=== PATIENT | female | born 1985 | race Two or more races ===

== ENCOUNTER 2017-12-25 16:15 | Emergency (ER) | payer SELFPAY ==
[~2017-12-25] VITALS: Ht 152.4 cm; Wt 70.8 kg
[~2017-12-25 16:15] MED LIST: PREN-96 PO
[2017-12-25 17:01] LABS: Basophils # (auto) 0 uL; Basophils % (auto) 0.2 % (0.0-2.0); Eosinophils # (auto) 0 uL; Eosinophils % (auto) 0.4 % (0.0-7.0); Hematocrit 39.9 % (36.0-46.0); Hemoglobin 13.5 g/dL (12.2-16.2); Lymphocytes # (auto) 1.5 uL; Lymphocytes % (auto) 12.9 % (10.0-50.0); Mean Corpuscular Hemoglobin 32.9 pg (28.0-32.0); Mean Corpuscular Hgb Conc. 33.7 g/dL (32.0-36.0); Mean Corpuscular Volume 97.4 fL (80.0-100.0); Monocytes # (auto) 0.7 uL; Monocytes % (auto) 5.8 % (0.0-12.0); Neutrophils # (auto) 9.2 uL; Neutrophils % (auto) 80.7 % (37.0-80.0); Nucleated Red Blood Cells % 0.1 %; Platelet Count (auto) 220 10^3/uL (140-450); Red Blood Cells 4.09 10^6/uL (4.0-5.20); White Blood Cell 11.4 10^3/uL (4.4-10.8)
[2017-12-25 17:13] LABS: Urine Bacteria FEW /hpf (None Seen); Urine Blood 3+ /uL (Negative); Urine Mucus FEW (None Seen); Urine Specific Gravity 1.025 (1.001-1.035); Urine WBC 12 /hpf (0 - 5)
[2017-12-25 17:13] LABS: Albumin 3.9 g/dL (3.4-5.0); Calcium 8.9 mg/dL (8.5-10.1); Potassium 3.5 mmol/L (3.5-5.1)
[2017-12-25 17:16] LABS: BUN/Creatinine Ratio 9.5; Bilirubin, Total 0.7 mg/dL (0.2-1.0); Total Protein 8.8 g/dL (6.4-8.2)
[2017-12-26] MEDS ORDERED: cefTRIAXone SOD 1,000 MG VL IM ONE (01:45)
[2017-12-26 04:00] VITALS: BP 112/70
== END 2017-12-26 05:00 | disposition home or self-care (01) ==
LOC: ER 16:19
DX: N39.0 Urinary tract infection, site not specified (principal)
CPT/HCPCS: 36415; 80053; 81001; 81025; 82150; 83690; 85025; 96372; 99284; J0696

== ENCOUNTER 2024-01-07 13:35 | Observation (INO) | payer MEDICAID ==
[2024-01-07 14:56] LABS: Fern Testing Negative
[2024-01-07 16:16] LABS: Basophils # (auto) 0 10 ^3/uL (0-0.2); Basophils % (auto) 0.1 % (0.0-2.0); Eosinophils # (auto) 0 10 ^3/uL (0-0.8); Eosinophils % (auto) 0.2 % (0.0-7.0); Hematocrit 35.1 % (36.0-46.0); Hemoglobin 12.1 g/dL (12.2-16.2); Lymphocytes # (auto) 1.6 10 ^3/uL (0.4-5.4); Lymphocytes % (auto) 23.5 % (10.0-50.0); Mean Corpuscular Hemoglobin 33.4 pg (28.0-32.0); Mean Corpuscular Hgb Conc. 34.3 g/dL (32.0-36.0); Mean Corpuscular Volume 97.4 fL (80.0-100.0); Monocytes # (auto) 0.3 10 ^3/uL (0-1.3); Monocytes % (auto) 4.9 % (0.0-12.0); Neutrophils # (auto) 4.7 10 ^3/uL (1.6-8.6); Neutrophils % (auto) 71.3 % (37.0-80.0); Nucleated Red Blood Cells % 0.1 %; Platelet Count (auto) 148 10^3/uL (140-450); Red Blood Cells 3.61 10^6/uL (4.0-5.20); Red Cell Distribution Width 14.2 % (11.8-14.3); White Blood Cell 6.6 10^3/uL (4.4-10.8)
[2024-01-07 16:18] LABS: Alanine Aminotransferase 12 U/L (7-40); Albumin 3.8 g/dL (3.2-4.8); Alkaline Phosphatase 125 U/L (46-116); Anion Gap 9 (5-15); Aspartate Aminotransferase 17 U/L (13-40); BUN/Creatinine Ratio 15.4 (10.0-20.0); Blood Urea Nitrogen 8 mg/dL (9-23); Calcium 9.7 mg/dL (8.7-10.4); Carbon Dioxide 20 mmol/L (20-31); Chloride 108 mmol/L (98-107); Glucose 83 mg/dL (74-106); Potassium 3.7 mmol/L (3.5-5.1); Sodium 137 mmol/L (136-145)
[2024-01-07 16:19] LABS: Bilirubin, Total 0.4 mg/dL (0.2-1.0); Total Protein 6.7 g/dL (5.7-8.2)
[2024-01-07 16:29] LABS: INR 0.95 (0.9-1.15); Partial Thromboplastin Time 26.3 SEC (24.5-34.5); Prothrombin Time 10.1 sec (9.3-11.8)
[2024-01-08 07:06] LABS: RPR Non Reactive (Non Reactive)
== END 2024-01-07 15:45 | disposition home or self-care (01) ==
LOC: LDRP 13:35 → UNDOADMOB 13:35 → LDRP 14:01
PROVIDERS: ADMIT Obstetrics & Gynecology; ATTEND Obstetrics & Gynecology
DX: O42.913 Preterm premature rupture of membranes, unspecified as to length of time between rupture and onset of labor, third trimester (principal); O62.9 Abnormality of forces of labor, unspecified; Z3A.37 37 weeks gestation of pregnancy; Z98.890 Other specified postprocedural states; Z79.899 Other long term (current) drug therapy
CPT/HCPCS: 36415; 59025; 76818; 80053; 81002; 84112; 85025; 85610; 85730; 86592; 86850; 86900; 86901; G0378; Q0114

== ENCOUNTER 2024-01-08 08:36 | Observation (INO) | payer MEDICAID | END 2024-01-08 10:35 | disposition home or self-care (01) | LOC: LDRP 08:36 | PROVIDERS: ADMIT Obstetrics & Gynecology; ATTEND Obstetrics & Gynecology | DX: O42.913 Preterm premature rupture of membranes, unspecified as to length of time between rupture and onset of labor, third trimester (principal); O62.9 Abnormality of forces of labor, unspecified; Z3A.37 37 weeks gestation of pregnancy; Z79.899 Other long term (current) drug therapy; Z98.890 Other specified postprocedural states | CPT/HCPCS: 59025; 76818; 81002; 82948; 82962; G0378 ==

== ENCOUNTER 2024-01-11 09:02 | Observation (INO) | payer MEDICAID | END 2024-01-11 11:39 | disposition home or self-care (01) | LOC: LDRP 09:02 | PROVIDERS: ADMIT Obstetrics & Gynecology; ATTEND Obstetrics & Gynecology | DX: O42.913 Preterm premature rupture of membranes, unspecified as to length of time between rupture and onset of labor, third trimester (principal); O09.513 Supervision of elderly primigravida, third trimester; O24.419 Gestational diabetes mellitus in pregnancy, unspecified control; Z3A.38 38 weeks gestation of pregnancy; Z79.899 Other long term (current) drug therapy; Z98.890 Other specified postprocedural states | CPT/HCPCS: 59025; 76818; 81002; 82948; 82962; 94760; G0378 ==

== ENCOUNTER 2024-01-13 13:23 | Observation (INO) | payer MEDICAID ==
--- NOTE | 2024-01-13 14:29 | DVH ---
CLINICAL HISTORY: Low RAMONA COMPARISON: US BIOPHYSICAL PROFILE on DOS: 01/11/24, US BIOPHYSICAL PROFILE on DOS: 01/08/24, US BIOPH YSICAL PROFILE on DOS: 01/07/24 TECHNIQUE: biophysical profile was performed. Transabdominal sonographic images of the fetus we re obtained. FINDINGS: The fetus is in cephalic position. heart rate measures 147 BPM. Amniotic fluid index measures 9 cm. MVP is 4.2 cm. The placenta is posterior in position. BPP profile is an overall score of 8/8, with 2/2 points for breathing, with at least one episode of breathing over a 30 second duration during a 30 minute observation, 2/2 points for m ovements, with 3 or more discrete body or limb movements, 2/2 points for tone, with one or more episodes of extremity extension with return to flexion, or opening and closing of hand, and 2/ 2 points for amniotic fluid, with at least 1 pocket of amniotic fluid that measures 2 cm in 2 perpend icular planes. IMPRESSION: BPP score of 8/8.
[2024-01-13] MEDS ORDERED: ceFAZolin 2 GM/D5W50ml 50 ML IV ONE (15:45)
[2024-01-13] MEDS ORDERED: LACTATED RINGER'S 1,000 ML IV SCH (15:45)
[2024-01-13] MEDS ORDERED: LACTATED RINGER'S 1,000 ML IV ONE (15:45)
--- NOTE | 2024-01-13 16:06 | DVHDS2 ---
Physician Discharge Progress N Final Diagnosis: labor check,oligo Operations or Procedures: Operations or Procedures nst,sono Condition on Discharge: Undetermined Disposition: Still a Patient Discharge Instructions: Diet: See Comment Activity: No Restrictions, As Tolerated Medications: na Follow Up Care: Specialist: admit for cs Discharge Statement: "Patient was advised to return to the ER or call 911 if any headaches, dizziness, shortness of breath, chest pain, abdominal pain, bleeding, fevers, or worsening of medical condition. Patient was counseled about treatment plan, medications, possible side effects, patientverbalized understanding. All questions were answered to the best of my ability. This discharge took greater then 30 minutes in planning, reviewing documentation, counseling the patient, and discussing with other team members." CONCHA GARCIA DO Jan 13, 2024 16:06
[2024-01-13] MEDS ORDERED: DOCU-94 PO (16:23)
[2024-01-13] MEDS ORDERED: IBUP-1456 PO (16:23)
[2024-01-13] MEDS ORDERED: HYDR-4072 PO (16:23)
[2024-01-14] MEDS ORDERED: PREN-96 PO (20:01)
[2024-01-14] MEDS ORDERED: FER325T PO (20:01)
[2024-01-14] MEDS ORDERED: IBUP-1456 PO (20:02)
[2024-01-14] MEDS ORDERED: IBUP-1455 PO (22:32)
[2024-01-14] MEDS ORDERED: HYDR-4798 PO (22:32)
[2024-01-14] MEDS ORDERED: DOCU-94 PO (22:32)
== END 2024-01-13 15:30 | disposition home or self-care (01) ==
LOC: UNDOADMOB 13:23 → LDRP 13:23 → UNDODISOB 15:30
PROVIDERS: ADMIT Obstetrics & Gynecology; ATTEND Obstetrics & Gynecology
DX: O41.03X0 Oligohydramnios, third trimester, not applicable or unspecified (principal); Z3A.38 38 weeks gestation of pregnancy
CPT/HCPCS: 59025; 76818; 81002; G0378

== ENCOUNTER 2024-01-13 15:25 | Inpatient (IN) | payer MEDICAID ==
[~2024-01-13] VITALS: Ht 152.4 cm; Wt 73.9 kg
[2024-01-13 15:15] LABS: Basophils # (auto) 0 10 ^3/uL (0-0.2); Basophils % (auto) 0.4 % (0.0-2.0); Eosinophils # (auto) 0 10 ^3/uL (0-0.8); Eosinophils % (auto) 0.5 % (0.0-7.0); Hematocrit 33.6 % (36.0-46.0); Hemoglobin 11.5 g/dL (12.2-16.2); Lymphocytes # (auto) 1.7 10 ^3/uL (0.4-5.4); Lymphocytes % (auto) 24.9 % (10.0-50.0); Mean Corpuscular Hemoglobin 33.4 pg (28.0-32.0); Mean Corpuscular Hgb Conc. 34.1 g/dL (32.0-36.0); Mean Corpuscular Volume 97.8 fL (80.0-100.0); Monocytes # (auto) 0.4 10 ^3/uL (0-1.3); Monocytes % (auto) 5.7 % (0.0-12.0); Neutrophils # (auto) 4.6 10 ^3/uL (1.6-8.6); Neutrophils % (auto) 68.5 % (37.0-80.0); Platelet Count (auto) 151 10^3/uL (140-450); Red Blood Cells 3.44 10^6/uL (4.0-5.20); Red Cell Distribution Width 13.9 % (11.8-14.3); White Blood Cell 6.7 10^3/uL (4.4-10.8)
[2024-01-13 15:25] LABS: Alanine Aminotransferase 14 U/L (7-40); Albumin 3.8 g/dL (3.2-4.8); Alkaline Phosphatase 130 U/L (46-116); Anion Gap 8 (5-15); Aspartate Aminotransferase 18 U/L (13-40); Bilirubin, Total 0.3 mg/dL (0.2-1.0); Blood Urea Nitrogen 8 mg/dL (9-23); Calcium 9.7 mg/dL (8.7-10.4); Carbon Dioxide 21 mmol/L (20-31); Chloride 109 mmol/L (98-107); Glucose 94 mg/dL (74-106); Potassium 3.9 mmol/L (3.5-5.1); Sodium 138 mmol/L (136-145); Total Protein 6.6 g/dL (5.7-8.2)
[2024-01-13 15:30] LABS: INR 0.94 (0.9-1.15); Partial Thromboplastin Time 25.8 SEC (24.5-34.5)
--- NOTE | 2024-01-13 15:41 | DVHHP ---
ADMIT DATE: 01/14/2024 CHIEF COMPLAINT: Labor, variable decelerations, low amniotic fluid. HISTORY OF PRESENT ILLNESS: The patient is a 1, para 1 female, admitted for suspected low RAMONA, previous , some contractions with variable decelerations. The patient has GDM, well controlled. The patient was sent to Labor and Delivery to check on her fluid, was noted to have multiple variable decelerations. Subsequently, the patient is being prepared for repeat section. Risks, complication, indication, alternative were discussed with the patient. Options reviewed. All questions answered. The patient fully understands. She wishes to proceed with planned procedure. PAST MEDICAL HISTORY: None. PAST SURGICAL HISTORY: . SOCIAL HISTORY: None. FAMILY HISTORY: None. OBSTETRIC AND GYNECOLOGIC HISTORY: One section, GDM. REVIEW OF SYSTEMS: Consistent with HPI. ALLERGIES: No known drug allergies. PHYSICAL EXAMINATION: VITAL SIGNS: Stable, afebrile. HEENT: Within normal limits. CARDIOVASCULAR: Regular rate and rhythm. LUNGS: Clear to auscultation. BREASTS: Symmetrical. No masses. ABDOMEN: Gravid. Positive heart. PELVIC: 1 cm, 50%, -3. EXTREMITIES: No clubbing, cyanosis or edema. IMPRESSION: * Intrauterine at 38+ weeks with suspected oligohydramnios. * Gestational diabetes mellitus. * Previous section x 1. * Multiple variable decelerations. PLAN: Repeat section. Informed consent obtained. Risks, complication of surgery including infection, bleeding, hematoma formation, injury to bowel, bladder, surrounding organs, possibility of DVT, pulmonary embolism, risk of anesthesia discussed with the patient. Options reviewed. All questions answered. The patient fully understands. She wishes to proceed with planned procedure. DO MARICRUZ Olson/LEMUEL TID: [id number] RECEIPT: [id number]
[2024-01-13] MEDS ORDERED: DOCU-94 PO (16:23)
[2024-01-13] MEDS ORDERED: HYDR-4072 PO (16:23)
[2024-01-13] MEDS ORDERED: IBUP-1456 PO (16:23)
[2024-01-13] MEDS ORDERED: ePHEDrine SULFATE 50 MG/ML AMP ONE (17:17)
[2024-01-13] MEDS ORDERED: MORPHINE SULF PF 5 MG/10 ML VIAL ONE (17:17)
[2024-01-13] MEDS ORDERED: fentaNYL CITRATE 100 MCG/2 ML VL ONE (17:17)
[2024-01-13] MEDS ORDERED: oxyTOCIN 10 UNIT/ML 10ML VIAL ONE (17:17)
[2024-01-13] MEDS ORDERED: GLYCOPYRROLATE 0.2 MG/ML 1ML VIAL ONE (17:18)
[2024-01-13] MEDS ORDERED: ONDANSETRON HCL 4 MG/2 ML VIAL ONE (17:20)
[2024-01-13 17:27] LABS: Amphetamine Screen, Urine Neg (NEGATIVE); Barbiturate Scree,Urine Neg (NEGATIVE); Urine Bacteria MOD /hpf (None Seen); Urine Blood Negative /uL (Negative); Urine Clarity Clear (Clear); Urine Color Colorless (Yellow); Urine Hyaline Cast FEW /lpf (0 - 2); Urine Protein, UAD Negative (Negative); Urine Specific Gravity 1.002 (1.001-1.035); Urine Urobilinogen Normal (Negative); Urine WBC 2 /hpf (0 - 5); Urine pH 6.5 (5.0-9.0)
[2024-01-13 17:28] LABS: Benzodiazephine Screen, Urine Neg (NEGATIVE)
[2024-01-13 17:29] LABS: Cannabinoid Screen, Urine Neg (NEGATIVE); Cocaine Screen, Urine Neg (NEGATIVE); Opiate Scree,Urine Neg (NEGATIVE); Phencyclidine Screen, Urine Neg (NEGATIVE)
--- NOTE | 2024-01-13 17:37 | DVHOP2 ---
Operative Report DATE OF OPERATION:01/13/24 PREOPERATIVE DIAGNOSES: [iup at 38 wks in labor,nonreassuring fht,ama,gdm,desires rcs,previous csx1,oligo,] POSTOPERATIVE DIAGNOSES: [same,nuchal cord,left large ovarian cyst] OPERATION PERFORMED: Repeat Sectionleft ovarian cystectomy FINDINGS: [b] infant. Apgars of [8] and [9]. Weight [2760] [good] crying tone. [clear] amniotic fluid. Placenta and three-vessel were intact. Normal tubes, ovaries, and uterus. left large ovarin cyst SURGEON: Alda Garcia D.O. ASSISTANCE SPECIALIST: hydrometeorological technician, [adam]. ANESTHESIOLOGIST: Jermain rucker ANESTHESIA: [Duramorph spinal, regional]. COMPLICATIONS: [none]. ESTIMATED BLOOD LOSS: [800] mL. BLOOD PRODUCTS USED: [none]. PROCEDURE IN DETAIL: The patient was taken to the operating room, placed in sitting position, and spinal was placed without difficulty. She was then prepped and draped in a sterile fashion. A low Pfannenstiel incision was made scapel. At this point, it was carried down through the rectus fascia, nicked in the midline, and carried laterally. The rectus muscles were in the midline. Peritoneum was identified and entered with sharp dissection. Vesicouterine peritoneum was taken off the lower uterine segment. A lower uterine transverse incision was made with a scalpel down the chorionic membranes, ruptured with hemostat. Infant was in vertex position. One hand was placed in the lower uterine segment. Head was essentially delivered spontaneously. Nose and mouth were bulb suctioned. Shoulders and torso were delivered without difficulty. Again, pharynx, nose, and mouth were re-suctioned with vigorous crying tone. Cord was cut. The was handed off to the awaiting Respiratory. At this point, umbilical blood sample was taken. Placenta was removed. Uterus was exteriorized, cleared off all clots and debris, irrigated, and closed with a double layer of 0-Vicryl. there was a large ovarian cyst which was excised using endogia The vesicouterine peritoneum was incorporated into this closure. We had complete hemostasis. EBL was [800] mL. The instrument, lap, and sponge count was correct x1. The uterus was placed back into the peritoneum. The peritoneal cavity was re-inspected and the lower uterine incision with good hemostasis. We closed the peritoneum with running continuous of 2-0 Vicryl. The Rectus Fascia was closed with 0-PDS, running continuous, looped-0. The skin was closed undermined, irrigated, and close with alfie. CONDITION: The patient's and the 's condition is stable and but guarded. ALDA GARCIA DO Jan 13, 2024 17:37
--- NOTE | 2024-01-13 17:39 | POSTOP ---
Post-Operative Note Post-Operative Note Preop Diagnosis iup at 38wks in labor,oligo,ama,gdm,desires rcs,nonreassuring fht,previous csx1 Postop Diagnosis: same,nuchal cord,left ovarian cyst Operation performed rcs with left ovarian cystectomy Specimen baby boy,apgars 8-9 Anesthesia: Regional Anesthesiologist: graciela Blood Loss(fluid mgmt) 800ml Surgeon Alda Hicks Domestic Violence Counselor adam Implant riddhi Complications & Mgmt none Date 01/13/24 Time 17:37 ALDA HICKS DO Jan 13, 2024 17:39
[2024-01-13 18:05] VITALS: PULSE 103; RESP 12; O2SAT 100
[2024-01-13] MEDS ORDERED: NALOXONE HCL 0.4 MG/ML VIAL IV PRN (18:15)
[2024-01-13] MEDS ORDERED: diphenhdrAMINE HCL 50 MG/1 ML VL IV PRN (18:15)
[2024-01-13] MEDS ORDERED: ONDANSETRON HCL 4 MG/2 ML VIAL IV PRN (18:15)
[2024-01-13] MEDS ORDERED: DexAMETHasone SOD PHOS 10MG/1ML VIAL INJ IV PRN (18:15)
[2024-01-13] MEDS: HYDROmorphone HCL 2 MG/ML VL/or syr IV ONE (18:32)
[2024-01-13] MEDS: LACTATED RINGER'S 1,000 ML IV ONE (18:40)
[2024-01-13] MEDS: ceFAZolin 2 GM/D5W50ml 50 ML IV ONE (18:42)
[2024-01-13] MEDS ORDERED: MIDAZOLAM HCL 2MG/2ML 2ml VIAL (1mg/ml) ONE (18:43)
[2024-01-13 19:00] VITALS: BP 131/77; PULSE 97; RESP 16; TEMP 97.9; O2SAT 98
[2024-01-13 20:00] VITALS: BP 122/79; PULSE 86; RESP 16; O2SAT 96
[2024-01-13] MEDS: LACTATED RINGER'S 1,000 ML IV SCH (20:43)
[2024-01-13 21:00] VITALS: BP 119/76; PULSE 90; RESP 15; O2SAT 96
[2024-01-13] MEDS: ACETAMINOPHEN IV 1000 MG/100ML (10MG/ML) IV ONE (21:42)
[2024-01-13] MEDS: ONDANSETRON HCL 4 MG/2 ML VIAL IV PRN (21:43)
[2024-01-13 21:49] LABS: Basophils # (auto) 0 10 ^3/uL (0-0.2); Basophils % (auto) 0.1 % (0.0-2.0); Eosinophils # (auto) 0 10 ^3/uL (0-0.8); Hematocrit 31.8 % (36.0-46.0); Hemoglobin 10.8 g/dL (12.2-16.2); Lymphocytes # (auto) 0.5 10 ^3/uL (0.4-5.4); Lymphocytes % (auto) 3.8 % (10.0-50.0); Mean Corpuscular Hemoglobin 33.4 pg (28.0-32.0); Mean Corpuscular Hgb Conc. 34.1 g/dL (32.0-36.0); Monocytes # (auto) 0.3 10 ^3/uL (0-1.3); Monocytes % (auto) 1.9 % (0.0-12.0); Neutrophils # (auto) 13.1 10 ^3/uL (1.6-8.6); Neutrophils % (auto) 94.2 % (37.0-80.0); Platelet Count (auto) 136 10^3/uL (140-450); Red Blood Cells 3.24 10^6/uL (4.0-5.20); Red Cell Distribution Width 13.7 % (11.8-14.3); White Blood Cell 13.9 10^3/uL (4.4-10.8)
[2024-01-13 22:00] VITALS: BP 118/65; PULSE 107; RESP 16; O2SAT 96
[2024-01-13 23:00] VITALS: BP 118/78; PULSE 89; RESP 16; TEMP 97.9; O2SAT 96
[2024-01-14] VITALS (20 sets, daily range): BP systolic 104–129; BP diastolic 48–79; PULSE 65–97; RESP 15–20; TEMP 97.5–99.1; O2SAT 94–99
[2024-01-14] MEDS: ceFAZolin 1GM/50ML 50 ML IV SCH (01:11)
--- NOTE | 2024-01-14 04:12 | DVHPN2 ---
Chief Complaints Patient reports: No new complaints (Coping well with current status. Has, sat, up at bedside, not yet began to ambulate, nut pain has been well controlled. ) Nursing reports: No new complaints Objective Vitals Vital Signs Date Time Temp Pulse Resp B/P (MAP) Pulse Ox O2 Delivery O2 Flow Rate FiO2 01/14/24 03:00 81 16 96 01/14/24 03:00 97.6 110/70 (83) 97.6 01/13/24 18:05 Room Air 0 100 Medications Current Medications Medications (Trade) Dose Ordered Sig/Coleen Route PRN Reason Start Time Stop Time Status Last Admin Acetaminophen (Ofirmev) 1,000 mg Q8HPRN PRN IV MODERATE PAIN (4-6 PAIN SCALE) 01/14/24 06:00 01/14/24 14:01 Cefazolin Sodium 50 ml @ 100 mls/hr Q8H IV 01/13/24 16:30 01/14/24 08:59 01/14/24 01:11 Diphenhydramine HCl (Benadryl Injection) 25 mg Q4HP PRN IV FOR ITCHING 01/13/24 18:15 Ketorolac Tromethamine (Toradol Injection) 30 mg Q6HP PRN IV MODERATE PAIN (4-6 PAIN SCALE) 01/13/24 18:15 01/18/24 18:14 Lactated Ringer's 1,000 ml @ 125 mls/hr Q8H IV 01/13/24 16:00 01/13/24 20:43 Ondansetron HCl (Zofran) 4 mg Q4HP PRN IV NAUSEA / VOMITING 01/13/24 16:30 01/13/24 21:43 General: Normal (VSS, ) Head/Eyes: Normal (Denies LE or dizziness) ENT: Normal Neck: Normal, Supple Lungs: Normal, Normal breath sounds Cardiovascular: Normal, Regular rate and rhythm Abdominal: Normal (CIncision: Covered with dressing, clean and intact), Soft, Non tender, No hepatosplenomegaly Musculoskeletal: Normal Extremities: Normal, Normal pulses Skin: Normal, Normal color, Warm Others Lochia: Minimal/Rubra Studies Laboratory Tests 01/13/24 21:38 01/13/24 14:50 Test 01/13/24 14:50 Range/Units Serum Glucose 94 74-106 mg/dL Ass/Plan Assessment S/P Repeat section Post-op Day 1 in stable condition Plan Asisst with first ambulation Analgesia as needed Continue routine post-op care DESI MCDANIEL CNM Jan 14, 2024 04:12
[2024-01-14] MEDS: KETOROLAC TROMETH 30 MG/ML 1ML VIAL IV PRN (04:57)
[2024-01-14 07:06] LABS: RPR Non Reactive (Non Reactive)
[2024-01-14] MEDS: ACETAMINOPHEN IV 1000 MG/100ML (10MG/ML) IV PRN (07:50)
[2024-01-14 09:13] LABS: Basophils # (auto) 0 10 ^3/uL (0-0.2); Eosinophils # (auto) 0 10 ^3/uL (0-0.8); Hematocrit 27.9 % (36.0-46.0); Hemoglobin 9.2 g/dL (12.2-16.2); Lymphocytes # (auto) 1.1 10 ^3/uL (0.4-5.4); Mean Corpuscular Hemoglobin 32.7 pg (28.0-32.0); Mean Corpuscular Hgb Conc. 33.1 g/dL (32.0-36.0); Mean Corpuscular Volume 98.8 fL (80.0-100.0); Monocytes # (auto) 0.6 10 ^3/uL (0-1.3); Monocytes % (auto) 6.1 % (0.0-12.0); Neutrophils # (auto) 8.6 10 ^3/uL (1.6-8.6); Neutrophils % (auto) 82.9 % (37.0-80.0); Platelet Count (auto) 136 10^3/uL (140-450); Red Blood Cells 2.82 10^6/uL (4.0-5.20); Red Cell Distribution Width 13.9 % (11.8-14.3); White Blood Cell 10.3 10^3/uL (4.4-10.8)
[2024-01-14] MEDS ORDERED: BISACODYL 10 MG RECT SUPP PR PRN (15:15)
[2024-01-14] MEDS: HYDROcodone-ACET 5/325MG TAB PO PRN (15:48)
[2024-01-14] MEDS: SIMETHICONE 80 MG CHEWABLE TABLET PO SCH (19:25)
[2024-01-14] MEDS: IBUPROFEN 800 MG TAB PO PRN (19:26)
[2024-01-14] MEDS ORDERED: PREN-96 PO ×2 (20:01→22:32)
[2024-01-14] MEDS ORDERED: FER325T PO ×2 (20:01→22:32)
[2024-01-14] MEDS ORDERED: IBUP-1456 PO (20:02)
[2024-01-14] MEDS: DOCUSATE SOD 100 MG CAP PO SCH (22:28)
[2024-01-14] MEDS ORDERED: DOCU-94 PO (22:32)
[2024-01-14] MEDS ORDERED: IBUP-1455 PO (22:32)
[2024-01-14] MEDS ORDERED: HYDR-4798 PO (22:32)
--- NOTE | 2024-01-15 01:05 | DVHPN2 ---
Progress Note Date Seen: Jan 15, 2024 Subjective S: bleeding is less, eating food without issues, denies lightheaded/dizziness, pain well controlled with oral medications, no concerns with urinating, no flatus/BM yet, ambulating well, well vital signs Vital Sign Date Time Temp Pulse Resp B/P (MAP) Pulse Ox O2 Delivery O2 Flow Rate FiO2 01/14/24 23:00 97.7 96 15 120/79 (93) 96 97.7 01/14/24 19:15 Room Air 01/14/24 07:00 0.0 01/13/24 18:05 100 Total Intake and Output 01/14/24 01/14/24 01/15/24 15:00 23:00 07:00 Intake Total 400 ml Output Total 410 ml 950 ml 400 ml Balance -410 ml -550 ml -400 ml medications Current Medications Medications Dose Ordered Sig/Coleen Route Start Time Stop Time Status Last Admin Dose Admin Ondansetron HCl 4 mg Q4HP PRN IV 01/13/24 16:30 01/13/24 21:43 4 MG Diphenhydramine HCl 25 mg Q4HP PRN IV 01/13/24 18:15 Docusate Calcium 240 mg DAILY PO 01/15/24 10:00 Docusate Sodium 100 mg Q12HR PO 01/14/24 22:00 01/14/24 22:28 100 MG Dimethicone 80 mg QID PO 01/14/24 18:00 01/14/24 22:28 80 MG Bisacodyl 10 mg DAILYP PRN DE 01/14/24 15:15 Ibuprofen 800 mg Q8HP PRN PO 01/14/24 15:15 01/14/24 19:26 800 MG Acetaminophen/ Hydrocodone Bitart 1 tab Q4HPRN PRN PO 01/14/24 15:15 Acetaminophen/ Hydrocodone Bitart 2 tab Q4HPRN PRN PO 01/14/24 15:15 01/15/24 00:45 2 TAB laboratory and microbiology Laboratory Tests 01/14/24 08:35 01/13/24 14:50 Test 01/13/24 14:50 Range/Units Serum Glucose 94 74-106 mg/dL Objective O: VSS Chest: heart sounds normal and lung sounds clear bilaterally Abd: soft, non-tender, fundus at U/firm/midline, active bowel sounds, no rebound or guarding Incision: sylke dressing open to air, clean/dry/intact, edges well approximated Ext: Non-tender, No edema, 2+ BLE DTRs Lochia: minimal See lab results Problems(with codes): (1) S/P repeat low transverse (2) Precipitous drop in hematocrit Assessment/Plan A: 38yo now PPD#2 s/p repeat Anemia Rh+ Rubella Immune Pain control with PO medications Bowel regimen P: D/C home tonight Rx sent to pharmacy precautions and preeclampsia warning signs reviewed F/U with [facility] office in 1 week Plan discussed with: Patient BHARGAVOLIVERYAN SALDIVAR Jan 15, 2024 01:05
[2024-01-15 02:45] VITALS: BP 106/61; PULSE 89; RESP 17; TEMP 97.8; O2SAT 96
[2024-01-15 07:01] VITALS: BP 105/70; PULSE 87; RESP 17; TEMP 98.1; O2SAT 98
[2024-01-15] MEDS: ceFAZolin 2 GM/D5W50ml 0 ML IV ONE (09:21)
[2024-01-15] MEDS: LACT. RINGERS/OXYTOCIN 20UNITS 1,000 ML IV ONE (09:21)
[2024-01-15] MEDS: HYDROmorphone HCL 2 MG/ML VL/or syr ONE (09:21)
[2024-01-15] MEDS: DOCUSATE CALCIUM 240 MG CAP PO SCH (11:09)
[2024-01-15 11:15] VITALS: BP 127/77; PULSE 104; RESP 18; TEMP 98
[2024-01-15 15:30] VITALS: BP 118/79; PULSE 108; RESP 18; TEMP 98.8; O2SAT 98
--- NOTE | 2024-01-15 16:16 | DVHDS2 ---
Obstetrics Discharge Summary Obstetrics Discharge Summary Date of Admission: Jan 13, 2024 Date of Discharge: Jan 15, 2024 Reason For Admission: Onset of Labor, Section (Repeat), Others (variable decelerations) Procedures: NST Intrapartum Procedures: (LTCS), Others (left ovarian cystectomy) Procedures: Antibiotics, Hct/date: (01/14/24), Hgb/date: (01/14/24) Operative Complicat: None Discharge Diagnosis: Term -Delivered Discharge Information: Activity (as tolerated, no heavy lifting and nothing in the vagina for 6 weeks), Diet (Routine), Medications (Rx sent), Instructions (Routine), Discharge to (Home), Accompanied by (family), Discarge date (01/15/24) RYAN VILLEGAS CNM Jan 15, 2024 16:16
[2024-01-15] MEDS: HYDROcodone-ACET 5/325MG TAB PO PRN (18:47)
[2024-01-15 19:00] VITALS: BP 120/75; PULSE 92; RESP 16; TEMP 98.4; O2SAT 98
[2024-01-15 19:50] VITALS: BP 120/75; PULSE 92; RESP 16; TEMP 98.4; O2SAT 98
[2024-01-16 11:07] LABS: Treponema Pallidum Ab LC Non Reactive (Non Reactive)
== END 2024-01-15 20:17 | disposition home or self-care (01) | DRG 540 ==
LOC: LDRP 15:25 → UNDOADMIN 15:33 → LDRP 15:33
PROVIDERS: ADMIT Obstetrics & Gynecology; ATTEND Obstetrics & Gynecology
PROC: 0UB10ZZ Excision of Left Ovary, Open Approach (ICD-10-PCS; 2024-01-13)
PROC: 10D00Z1 Extraction of Products of Conception, Low, Open Approach (ICD-10-PCS; principal; 2024-01-13 16:26)
DX: O41.03X0 Oligohydramnios, third trimester, not applicable or unspecified (principal); O24.429 Gestational diabetes mellitus in childbirth, unspecified control; N83.202 Unspecified ovarian cyst, left side; O76 Abnormality in fetal heart rate and rhythm complicating labor and delivery; O69.81X0 Labor and delivery complicated by cord around neck, without compression, not applicable or unspecified; O34.83 Maternal care for other abnormalities of pelvic organs, third trimester; O34.211 Maternal care for low transverse scar from previous cesarean delivery; O90.81 Anemia of the puerperium; Z37.0 Single live birth; Z3A.38 38 weeks gestation of pregnancy
CPT/HCPCS: 36415; 80053; 80307; 81001; 85025; 85610; 85730; 86592; 86780; 86803; 86850; 86900; 86901; 94760; 94762; 96360; 96361; 96374; G0378; J0131; J1885; J2250; J2405; J2590

== ENCOUNTER 2024-01-27 12:11 | Emergency (ER) | payer MEDICAID ==
[~2024-01-27] VITALS: Ht 177.8 cm; Wt 67.5 kg
[~2024-01-27 12:11] MED LIST changes: +DOCU-94 PO; +FER325T PO; +HYDR-4798 PO; +IBUP-1455 PO
--- NOTE | 2024-01-27 12:36 | ED.PDOC ---
HPI (NEURO) HPI Comments HPI: Poor Historian. 39-year-old female sent from doctor's and office the OB Gyne doctor for rule out preeclampsia. Patient has been complaining of forehead headache for approximately 1-2 weeks. Patient never had this condition preeclampsia in the past. Patient had history of gestational diabetes. Patient is status post two weeks by on January 12. Patient was seen today and evaluated by doctors and placenta to the ER and also evaluated her surgical site. Patient has tried some Tylenol at home for headaches without significant relief. Patient triage vital signs here are stable. Patient is not hypertensive. Denies any chest pain or shortness of breath. Denies any nausea or vomiting or diarrhea. Patient is . Past Medcial History: Gestational diabetes Past Surgical History: REVIEW OF SYSTEMS: CONSTITUTIONAL: Denies acute: fever, diaphoresis, chills, generalized weakness. HEAD: Denies acute: photophobia Eyes: Denies acute: Double vision, vision loss, eye pain, eye discharge. EARS: Denies acute: tinnitus, hearing loss, ear discharge, ear pain, THROAT: Denies acute: sore throat, swelling, difficulty swallowing , pain with swallowing, change in voice. NECK: Denies acute: neck pain, neck swelling, stiff neck. HEART: Denies acute : chest pain, palpitations, LUNGS: Denies acute: SOB, wheezing, cough, hemoptysis ABDOMEN: Denies acute: abdominal pain, Nausea, Vomiting, diarrhea, melena , hematemesis, hematochezia SKIN: Denies acute: rash, redness, lesions, itchiness. EXTREMITIES: Denies acute: calf pain, numbness, tingling, weakness, denies pain in extremity. Denies acute: Low back pain. Neuro: Denies acute: focal neurological deficit, motor or sensory focal neurological deficit, tremors, seizure like activity, confusion, dizziness, change in mental status, loss of bowel or bladder function, cauda equina like symptoms. : Denies acute: dysuria, hematuria, flank pain, increase in urinary frequency. PSYCH: Denies acute: hallucination, suicidal ideation, homicidal ideation. FEMALE: Denies acute: abnormal vaginal bleeding, foul odor, unusual discharge. PHYSICAL EXAM: General: no acute distress, awake and alert. Head: normocephalic, atraumatic. Neck: supple, trachea is midline, no swelling. Throat: Normal phonation. Eyes:, no erythema, no purulent discharge, no proptosis, no icterus. Heart: regular rate, regular rhythm, no significant murmur appreciated. Lungs: no apparent respiratory distress, Able to speak in full sentences. No wheezing, no rhonchi, no crackles. No stridors Clear to auscultation bilaterally. Abdomen: non tender to palpation, non distended, soft, no guarding, no rebound, + bowel sounds. Neuro: Awake, Alert, oriented to name, self, situation, follows commands GCS=15. Speech is normal. Skin: no petechia, no purpura, no cyanosis, non-pale, not jaundice. Lower extremities: --no - Pitting edema no deformity, no focal swelling, no calf TTP. Makes eye contact. moves all four extremities. Face: no apparent facial droop. Ambulating in the ED independently. . No nuchal rigidity, Kernig's sign, Brudzinski's sign, no meningeal signs. Chief Complaint: Headache Time Seen by MD: 12:20 Primary Care Provider: kurt Reviewed Notes: Nurses Notes, Allergies Information Source: Patient Mode of Arrival: Ambulatory Past Medical History PAST MEDICAL HISTORY: Denies Surgical History: TURN LASTER History: No Pertinent TURN LASTER History Family History Family History: Unknown Social History Smoker: Non-Smoker Alcohol: Occasionally Drugs: Denies Drug Use Lives In: Home X-Ray, Labs, Meds, VS Vital Signs Date Time Temp Pulse Resp B/P (MAP) Pulse Ox O2 Delivery O2 Flow Rate FiO2 01/27/24 12:20 98.4 102 16 121/82 (95) 99 Lab Test 01/27/24 13:55 01/27/24 13:04 Range/Units Urine Color Light-yellow Yellow Urine Clarity Clear Clear Urine pH 7.0 5.0-9.0 Urine Specific Mcintosh 1.011 1.001-1.035 Urine Protein Negative Negative Urine Ketones Negative Negative Urine Blood 3+ H Negative /uL Urine Nitrite Negative Negative Urine Bilirubin Negative Negative Urine Urobilinogen Normal Negative mg/dL Urine Leukocyte Esterase 1+ Negative /uL Urine RBC 64 0 - 4 /hpf Urine WBC 9 0 - 5 /hpf Urine Squamous Epithelial Cells Few <5 /hpf Urine Bacteria None seen None Seen /hpf Urine Glucose Normal Normal mg/dL White Blood Count 7.6 4.4-10.8 10^3/uL Red Blood Count 3.68 L 4.0-5.20 10^6/uL Hemoglobin 12.2 12.2-16.2 g/dL Hematocrit 36.4 36.0-46.0 % Mean Corpuscular Volume 98.9 80.0-100.0 fL Mean Corpuscular Hemoglobin 33.2 H 28.0-32.0 pg Mean Corpuscular Hemoglobin Concent 33.6 32.0-36.0 g/dL Red Cell Distribution Width 13.9 11.8-14.3 % Platelet Count 306 140-450 10^3/uL Mean Platelet Volume 8.0 6.9-10.8 fL Neutrophils (%) (Auto) 69.6 37.0-80.0 % Lymphocytes (%) (Auto) 23.8 10.0-50.0 % Monocytes (%) (Auto) 5.0 0.0-12.0 % Eosinophils (%) (Auto) 0.9 0.0-7.0 % Basophils (%) (Auto) 0.7 0.0-2.0 % Neutrophils # (Auto) 5.3 1.6-8.6 10 ^3/uL Lymphocytes # (Auto) 1.8 0.4-5.4 10 ^3/uL Monocytes # (Auto) 0.4 0-1.3 10 ^3/uL Eosinophils # (Auto) 0.1 0-0.8 10 ^3/uL Basophils # (Auto) 0 0-0.2 10 ^3/uL Nucleated Red Blood Cells 0.0 % Sodium Level 141 136-145 mmol/L Potassium Level 3.9 3.5-5.1 mmol/L Chloride Level 107 98-107 mmol/L Carbon Dioxide Level 25 20-31 mmol/L Anion Gap 9 5-15 Blood Urea Nitrogen 7 L 9-23 mg/dL Creatinine 0.55 0.550-1.02 mg/dL Glomerular Filtration Rate Calc 119 >90 mL/min BUN/Creatinine Ratio 12.7 10.0-20.0 Serum Glucose 88 74-106 mg/dL Calcium Level 10.4 8.7-10.4 mg/dL Magnesium Level 2.1 1.6-2.6 mg/dL Total Bilirubin 0.5 0.2-1.0 mg/dL Aspartate Amino Transferase (AST) 26 13-40 U/L Alanine Aminotransferase (ALT) 34 7-40 U/L Alkaline Phosphatase 98 46-116 U/L Total Protein 7.7 5.7-8.2 g/dL Albumin 4.5 3.2-4.8 g/dL [facility] [id number] [place] [id number] Ph: [phone] DIAGNOSTIC IMAGING Diagnostic Imaging Report : [id number] Signed PATIENT: KING MEZA ACCT: [id number] UNIT: [id number] : 1985 LOC: ER ROOM / BED: / AGE / SEX: 39 / F ADM STATUS: REG ER SERVICE [id number] ORDERING PHYSICIAN: STEPHANIE WEBER DO PROCEDURE(s): HWOCT - HEAD WITHOUT CONTRAST REASON: headache ORDER NUMBER(s): [id number], ACCESSION NUMBER(s): [id number] Exam: CT HEAD WITHOUT CONTRAST History: headache Technique: [address] images through the posterior fossa and the supratentorial compartment were acquired without contrast and imaged using soft tissue and bone algorithms. RADIATION DOSE: DLP 928.17 mGy.cm; CTDI vol 52.41 mGy. Comparison: None Findings: There is no evidence of an intracranial hemorrhage, acute large vessel infarct, mass effect, or midline shift. The calvarium, orbits, paranasal sinuses, sella, middle ears, and mastoids are unremarkable. The superficial soft tissues are within normal limits. Impression: 1. No acute intracranial abnormality. ATED BY: TRISTA LOU DO DICTATED DATE/TIME: 01/27/24 1308 SIGNED BY: TRISTA LOU DO SIGNED DATE/TIME: 01/27/24 1308 CC: Time of 1ST Reevaluation: 14:55 Reevaluation 1ST: Unchanged Time of 2ND Reevaluation: 15:43 (The case was discussed with the OB Gyne team (HPI, physical exam, labs and diagnostic tests that were available at the time of disposition, ED course, treatment plan) on the phone. They recommend sending the patient home on Keflex and outpatient follow up. Doctor Kurt who sent the patient to the ER.) Patient Education/Counseling: Diagnosis, Treatment Family Education/Counseling: No Family Present Departure 1 Departure Time of Disposition: 14:54 Impression: Primary Impression: UTI (urinary tract infection) Additional Impression: Headache Disposition: 01 HOME / SELF CARE / HOMELESS Condition: Stable Additional Instructions: Additional discharge instructions: You MUST follow-up with your primary care/family doctor in 1 to 2 days. If you are unable to see your primary care/family doctor, please return to our emergency room for re-assessment and re-evaluation in 1 to 2 days. Return to the emergency room here in our facility or to the nearest ER [facility] if your symptoms change or worsen. CONSULTATIONS: you MUST Follow-up for consultation as soon as possible with: neurology in 1-2 days. Please call for appointment. You MUST call the consultants office yourself to make an appointment. You may n eed to arrange that through your insurance and/or your primary/family doctor. If you are unable to see the field service consultant in 1 to 2 days, you must return to our emergency room (or any other ER of your choice) for re-assessment and re- evaluation. Adequate fluid hydration. Below is a copy of your radiological report for follow up: [place] [address] Ph: [phone] DIAGNOSTIC IMAGING Diagnostic Imaging Report : [id number] Signed PATIENT: KING MEZA ACCT: [id number] UNIT: [id number] : 1985 LOC: ER ROOM / BED: / AGE / SEX: 39 / F ADM STATUS: REG ER SERVICE [facility] ORDERING PHYSICIAN: STEPHANIE WEBER DO PROCEDURE(s): HWOCT - HEAD WITHOUT CONTRAST REASON: headache ORDER NUMBER(s): [id number], ACCESSION NUMBER(s): [id number] Exam: CT HEAD WITHOUT CONTRAST History: headache Technique: [address] images through the posterior fossa and the supratentorial compartment were acquired without contrast and imaged using soft tissue and bone algorithms. RADIATION DOSE: DLP 928.17 mGy.cm; CTDI vol 52.41 mGy. Comparison: None Findings: There is no evidence of an intracranial hemorrhage, acute large vessel infarct, mass effect, or midline shift. The calvarium, orbits, paranasal sinuses, sella, middle ears, and mastoids are unremarkable. The superficial soft tissues are within normal limits. Impression: 1. No acute intracranial abnormality. ATED BY: TRISTA LOU DO DICTATED DATE/TIME: 01/27/24 1308 SIGNED BY: TRISTA LOU DO SIGNED DATE/TIME: 01/27/24 1308 CC: e-Prescriptions Cephalexin Monohydrate (Cephalexin) 500 Mg Cap 500 MG PO Q8HR for 7 Days, #21 MG Prov: STEPAHNIE WEBER DO 01/27/24 Discharged With: Self STEPHANIE WEBER DO Jan 27, 2024 12:36
--- NOTE | 2024-01-27 13:10 | DVH ---
Exam: CT HEAD WITHOUT CONTRAST History: headache Technique: [address] images through the posterior fossa and the supratentorial compart ment were acquired without contrast and imaged using soft tissue and bone algorithms. RADIATION DOSE: DLP 928.17 mGy.cm; CTDI vol 52.41 mGy. Comparison: None Findings: There is no evidence of an intracranial hemorrhage, acute large vessel infarct, mass effect, or midli ne shift. The calvarium, orbits, paranasal sinuses, sella, middle ears, and mastoids are unremarkable. The superficial soft tissues are within normal limits. Impression: 1. No acute intracranial abnormality.
[2024-01-27 13:29] LABS: Basophils # (auto) 0 10 ^3/uL (0-0.2); Basophils % (auto) 0.7 % (0.0-2.0); Eosinophils # (auto) 0.1 10 ^3/uL (0-0.8); Eosinophils % (auto) 0.9 % (0.0-7.0); Hematocrit 36.4 % (36.0-46.0); Hemoglobin 12.2 g/dL (12.2-16.2); Lymphocytes # (auto) 1.8 10 ^3/uL (0.4-5.4); Lymphocytes % (auto) 23.8 % (10.0-50.0); Mean Corpuscular Hemoglobin 33.2 pg (28.0-32.0); Mean Corpuscular Hgb Conc. 33.6 g/dL (32.0-36.0); Mean Corpuscular Volume 98.9 fL (80.0-100.0); Monocytes # (auto) 0.4 10 ^3/uL (0-1.3); Neutrophils # (auto) 5.3 10 ^3/uL (1.6-8.6); Neutrophils % (auto) 69.6 % (37.0-80.0); Platelet Count (auto) 306 10^3/uL (140-450); Red Blood Cells 3.68 10^6/uL (4.0-5.20); Red Cell Distribution Width 13.9 % (11.8-14.3); White Blood Cell 7.6 10^3/uL (4.4-10.8)
[2024-01-27 13:49] LABS: Alanine Aminotransferase 34 U/L (7-40); Albumin 4.5 g/dL (3.2-4.8); Alkaline Phosphatase 98 U/L (46-116); Anion Gap 9 (5-15); Aspartate Aminotransferase 26 U/L (13-40); BUN/Creatinine Ratio 12.7 (10.0-20.0); Bilirubin, Total 0.5 mg/dL (0.2-1.0); Blood Urea Nitrogen 7 mg/dL (9-23); Calcium 10.4 mg/dL (8.7-10.4); Carbon Dioxide 25 mmol/L (20-31); Chloride 107 mmol/L (98-107); Glucose 88 mg/dL (74-106); Magnesium 2.1 mg/dL (1.6-2.6); Potassium 3.9 mmol/L (3.5-5.1); Sodium 141 mmol/L (136-145)
[2024-01-27 13:50] LABS: Total Protein 7.7 g/dL (5.7-8.2)
[2024-01-27 13:56] LABS: Urine Bacteria None Seen /hpf (None Seen)
[2024-01-27 14:19] LABS: Urine Blood 3+ /uL (Negative); Urine Clarity Clear (Clear); Urine Color Light-Yellow (Yellow); Urine Protein, UAD Negative (Negative); Urine Specific Gravity 1.011 (1.001-1.035); Urine Urobilinogen Normal (Negative); Urine WBC 9 /hpf (0 - 5)
[2024-01-27] MEDS ORDERED: CEPH500C PO (15:49)
[2024-01-27] MEDS: HYDROcodone-ACET 5/325MG TAB PO ONE (16:16)
[2024-01-27] MEDS: MAGNESIUM OXIDE 400 MG TAB PO ONE (16:17)
[2024-01-27] MEDS: diphenhdrAMINE HCL 25 MG CAP PO ONE (16:17)
[2024-01-27 16:21] VITALS: BP 114/69; PULSE 82; RESP 17; TEMP 98.9; O2SAT 99
== END 2024-01-27 16:31 | disposition home or self-care (01) ==
LOC: ER 12:11
DX: N39.0 Urinary tract infection, site not specified (principal); R51.9 Headache, unspecified; Z79.899 Other long term (current) drug therapy
CPT/HCPCS: 36415; 70450; 80053; 81001; 83735; 85025